=== PATIENT | female | born 1975 | race Caucasian/White ===

== ENCOUNTER 2018-03-25 08:15 | Day surgery (SDC) | payer BC ==
[~2018-03-25 08:15] MED LIST: Lactated Ringers 1,000 ML IV SCH; Lidocaine 2% 5 ML SDV ONE; Propofol 200 MG/20 ML SDV ONE; Sodium Chloride 0.9% 10 ML Syringe FLUSH PRN; Sodium Chloride 0.9% 2.5 ML Syringe FLUSH PRN; fentaNYL 100 MCG/2 ML SDV ONE
--- NOTE | 2018-03-25 08:51 | PCM.PREANE ---
Preanesthetic Assessment - Anesthesia/Transfusion/Family Hx Anesthesia History: Prior Anesthesia Without Reaction Family History of Anesthesia Reaction: No Transfusion History: No Prior Transfusion(s) Intubation History: Unknown - Review of Systems General: No Symptoms Pulmonary: No Symptoms Cardiovascular: No Symptoms Gastrointestinal: Other (h/o colon polyps 12 years ago) Neurological: No Symptoms Other: Reports: None - Physical Assessment O2 Sat by Pulse Oximetry: 97 Respiratory Rate: 16 Vital Signs: Last Vital Signs Temp 36 C 03/25/18 08:38 Pulse 80 03/25/18 08:38 Resp 16 03/25/18 08:38 BP 108/62 03/25/18 08:38 Pulse Ox 97 03/25/18 08:38 Height: 1.63 m Weight: 60.328 kg ASA Class: 2 Mental Status: Alert & Oriented x3 Airway Class: Mallampati = 2 Dentition: Reports: Normal Dentition Thyro-Mental Finger Breadths: 3 Mouth Opening Finger Breadths: 3 ROM/Head Extension: Full Lungs: Clear to Auscultation, Normal Respiratory Effort Cardiovascular: Regular Rate, Regular Rhythm - Allergies Allergies/Adverse Reactions: Allergies Allergy/AdvReac Type Severity Reaction Status Date / Time iodine Allergy Anaphylactic Verified 03/22/18 09:47 Shock - Blood Blood Available: No - Anesthesia Plan Pre-Op Medication Ordered: None - Acknowledgements Anesthesia Type Planned: MAC Pt an Appropriate Candidate for the Planned Anesthesia: Yes Alternatives and Risks of Anesthesia Discussed w Pt/Guardian: Yes Pt/Guardian Understands and Agrees with Anesthesia Plan: Yes PreAnesthesia Questionnaire HEENT History: Reports: Allergic Rhinitis Respiratory History: Reports: Asthma, Other (See Below) Other Respiratory History: "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" Gastrointestinal History: Reports: Colon Polyp Genitourinary History: Reports: Renal Calculus, UTI, Recurrent Neurological History: Reports: Migraines Psychiatric History: Reports: Anxiety Endocrine/Metabolic History: Reports: None - Past Surgical History Head Surgeries/Procedures: Reports: None GI Surgical History: Reports: Colonoscopy (12 years ago) Female Surgical History: Reports: Breast Implant, Tubal Ligation, Ureteral Stent, Other (See Below) Other Female Surgeries/Procedures: von ureteral reimplantations Male Surgical History: Reports: Renal Calculus - SUBSTANCE USE Smoking Status *Q: Former Smoker Tobacco Use Within Last Twelve Months: Other (See Below) Recreational Drug Use History: No - HOME MEDS Home Medications: Home Meds Albuterol [Ventolin HFA] 1 - 2 puff INH ASDIRECTED PRN 03/22/18 [History] Cetirizine [ZyrTEC] 10 mg PO DAILY 03/22/18 [History] Fluticasone Propionate [Flonase Allergy Relief] 1 spray CHERELLE BID 03/22/18 [ History] Ibuprofen 1 tab PO QID 03/22/18 [History] Loratadine [Claritin] 10 mg PO DAILY PRN 03/22/18 [History] Rizatriptan Benzoate [Rizatriptan] 1 tab PO ASDIRECTED PRN 03/22/18 [History] - CURRENT (IN HOUSE) MEDS Current Meds: Current Medications Lactated Ringer's (Ringers, Lactated) 1,000 mls @ 125 mls/hr IV ASDIRECTED EDUARDO Last Admin: 03/25/18 08:44 Dose: 125 mls/hr Sodium Chloride (Saline Flush) 10 ml FLUSH ASDIRECTED PRN PRN Reason: Keep Vein Open Sodium Chloride (Saline Flush) 2.5 ml FLUSH ASDIRECTED PRN PRN Reason: Keep Vein Open Sodium Chloride (Saline Flush) 10 ml FLUSH ASDIRECTED PRN PRN Reason: Keep Vein Open Sodium Chloride (Saline Flush) 2.5 ml FLUSH ASDIRECTED PRN PRN Reason: Keep Vein Open Discontinued Medications Fentanyl (Sublimaze) Confirm Administered Dose 100 mcg .ROUTE .STK-MED ONE Stop: 03/25/18 07:03 Lidocaine (Xylocaine-Mpf 2%) Confirm Administered Dose 5 ml .ROUTE .STK-MED ONE Stop: 03/25/18 07:02 Propofol (Diprivan 20 Ml) Confirm Administered Dose 400 mg .ROUTE .STK-MED ONE Stop: 03/25/18 07:03
[2018-03-25] MEDS ORDERED: Glycopyrrolate 0.2 MG/ML SDV ONE (09:14)
--- NOTE | 2018-03-25 09:27 | PCM.OPNOTE ---
- General Post-Op/Procedure Note Date of Surgery/Procedure: 03/25/18 Operative Procedure(s): Colonoscopy Findings: Normal colonoscopy Pre Op Diagnosis: Family history of colon cancer Post-Op Diagnosis: Normal colonoscopy Anesthesia Technique: MAC Primary Surgeon: Wendy Alicia Condition: Good
--- NOTE | 2018-03-25 09:43 | PCM.POSTAN ---
POST ANESTHESIA ASSESSMENT - MENTAL STATUS Mental Status: Alert, Oriented - VITAL SIGNS Pulse Rate: 60 SaO2: 98 Resp Rate: 12 Blood Pressure: 92/46 - RESPIRATORY Respiratory Status: Respiratory Rate WNL, Airway Patent, O2 Saturation Stable - CARDIOVASCULAR CV Status: Pulse Rate WNL, Blood Pressure Stable - GASTROINTESTINAL GI Status: No Symptoms - PAIN Pain Score: 0 - POST OP HYDRATION Hydration Status: Adequate & Stable
--- NOTE | 2018-03-25 10:04 | PCM48HPAN ---
Post Anesthesia Note - EVALUATION WITHIN 48HRS OF ANESTHETIC Vital Signs in Normal Range: Yes Patient Participated in Evaluation: Yes Respiratory Function Stable: Yes Airway Patent: Yes Cardiovascular Function Stable: Yes Hydration Status Stable: Yes Pain Control Satisfactory: Yes Nausea and Vomiting Control Satisfactory: Yes Mental Status Recovered: Yes Pulse Rate: 60 Resp Rate: 12 Blood Pressure: 92/46 - COMMENTS/OBSERVATIONS Free Text/Narrative:: no anesthesia problems
[2018-03-25 10:12] VITALS: BP 96/56
--- NOTE | 2018-03-25 12:58 | OR ---
SURGEON: RASHIDA CALDERON MD DATE OF PROCEDURE: 03/25/2018 PREOPERATIVE DIAGNOSIS: Screening colonoscopy. POSTOPERATIVE DIAGNOSIS: Screening colonoscopy. PROCEDURE PERFORMED: Screening colonoscopy. ANESTHESIA: MAC. INSTRUMENT USED: Olympus colonoscope. EXTENT OF EXAM: To the cecum. PREPARATION: Good. LIMITATIONS: None. INDICATION FOR EXAMINATION: The patient is a 42-year-old female, who presents for screening colonoscopy. She has multiple family members, who had colon cancer. Her mother was diagnosed with colon cancer at age of 35. The patient has had no changes in her bowel movements. We discussed the procedure, expected perioperative course, and risks including bleeding, infection, or damage to surrounding structures including perforation. The patient verbalized understanding and wishes to proceed. PROCEDURE IN DETAIL: The patient was brought to the endoscopy suite and placed in the left lateral decubitus position. A time-out was completed verifying the patient's name, age, date of , allergies, and procedure to be performed. Monitored anesthesia care was induced and continuous oxygen was provided via nasal cannula throughout the procedure. After adequate sedation was achieved, a digital rectal exam was performed. This exam was within normal limits. A well lubricated colonoscope was inserted in the rectum and advanced under direct visualization to the level of the cecum. The cecum was identified by both visual and anatomic landmarks. A photograph was taken of the cecal cap; however, I was unable to retroflex the scope within the cecum due to looping of the scope more proximally. The scope was then fully withdrawn while examining the color, texture, anatomy, and integrity of the mucosa from the cecum to the anal canal. The findings were consistent with normal colonic mucosa. The scope was then brought into the rectum and retroflexed to allow visualization of the anal canal opening. This appeared normal and a photograph was taken. The scope was then straightened out and fully withdrawn. The cecum to anus time was 9 minutes. The patient tolerated the procedure well and was taken to PACU in stable condition. ENDOSCOPIC DIAGNOSIS: Normal colonoscopy. RECOMMENDATIONS: Follow up in clinic in 5 years. MARILEE KINGSLEY /[id number]
== END 2018-03-25 10:07 | disposition home or self-care (01) ==
LOC: MW.SDS 08:15
PROVIDERS: ATTEND Surgery
DX: Z12.11 Encounter for screening for malignant neoplasm of colon (principal); Z86.010 Personal history of colon polyps; Z87.891 Personal history of nicotine dependence; Z79.899 Other long term (current) drug therapy; Z80.0 Family history of malignant neoplasm of digestive organs; Z88.8 Allergy status to other drugs, medicaments and biological substances
CPT/HCPCS: 45378; 81025; J2704; J3010; J3490; J7120

== ENCOUNTER 2020-04-02 23:24 | Emergency (ER) | payer SELFPAY ==
[2020-04-03] MEDS ORDERED: Prochlorperazine 10 MG/2 ML SDV IVPUSH ONE (00:27)
[2020-04-03] MEDS ORDERED: Ketorolac 15 MG/ML SDV IVPUSH ONE (00:29)
[2020-04-03] MEDS ORDERED: diphenhydrAMINE 50 MG/ML SDV IVPUSH ONE (00:29)
[2020-04-03] MEDS ORDERED: methylPREDNISolone Sodium Succinate 125 MG/2 ML SDV IVPUSH ONE (00:29)
[2020-04-03] MEDS ORDERED: Sodium Chloride 0.9% 1,000 ML IV ONE (00:32)
--- NOTE | 2020-04-03 00:38 | EDM.PDOC ---
ED [facility] GENERAL MEDICAL PROBLEM - General Chief Complaint: Headache Stated Complaint: migraine Time Seen by Provider: 04/02/20 23:30 - History of Present Illness INITIAL COMMENTS - FREE TEXT/NARRATIVE: HISTORY AND PHYSICAL: History of present illness: This 44-year-old female with a history of chronic migraines presents emergency department after using a triptan multiple times without relief. She rates her headache as 7 out of 10. She has photophobia. Is mostly on the right side and goes from the occipital area up to the parietal area and forehead. No neck stiffness or pain with range of motion. She states that she has these on a regular basis and has had difficulty getting into her headache specialist secondary to change in insurance. The patient reports that she is also had some mild nausea. No fevers. 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 No recent travel. She does use nicotine with a vape system. No drugs. Denies use of alcohol other than in social settings at times. Review of systems: A 10-point review of systems, other than pertinent positives and negatives as stated per HPI, is otherwise negative. Past medical history: As per history of present illness and as reviewed below otherwise noncontributory. Surgical history: As per history of present illness and as reviewed below otherwise noncontributory. Social history: No reported history of drug or alcohol abuse. Family history: As per history of present illness and as reviewed below otherwise noncontributory. Physical exam: VITAL SIGNS: Reviewed. GENERAL: Appears to be in acute pain. Otherwise nontoxic. She has a normal gait walking to the emergency department triage area HEAD: No signs of head trauma. EYES: Pupils are equal. Extraocular motions intact. EARS: Hearing grossly intact. MOUTH: Oropharynx is normal. NECK: No adenopathy, no JVD. CHEST: Chest with clear breath sounds bilaterally. No wheezes, rales, or rhonchi. CARDIAC: Regular rate and rhythm. Normal S1 and S2, without murmurs, gallops, or rubs. VASCULAR: Peripheral pulses normal and equal in all extremities. ABDOMEN: Soft, without detectable tenderness. No sign of distention. No rebo und or guarding, and no masses palpated. MUSCULOSKELETAL: Good range of motion of all major joints. Extremities without clubbing, cyanosis or edema. NEUROLOGIC EXAM: Alert and oriented x 3. No focal sensory or motor deficits. Speech normal. Follows commands. Cranial nerves II through XII are intact. Normal gait when walking next to her from the waiting area to the triage area. PSYCHIATRIC: Mood normal. SKIN: No rash or lesions. Initial Differential Diagnosis & Plan: Differential diagnosis includes meningitis, subarachnoid hemorrhage, trauma, mass lesion, carbon dioxide of exposure, cavernous sinus venous thrombosis, and pseudotumor cerebri. There is no neck stiffness or fever to suggest meningitis. There was no evidence of carbon monoxide exposure. There is not a history of hypercoagulability or cranial nerve deficits to suggest cavernous venous thrombosis. The vision is normal and the duration is not long enough to consider pseudotumor cerebri. There is no evidence of trauma to suggest epidural hematoma or subdural hematoma. The onset was gradual and it is not the worst headache ever making subarachnoid hemorrhage less likely. I suspect this is her normal migraine not responding to her rescue medications. No neurologic deficits. No high risk features for cavernous sinus thrombosis. No recent trauma. There is some mild increase in her pain when palpating the right posterior occipital outlet. This could be an occipital neuralgia. We will try Compazine, Benadryl, Toradol and Solu-Medrol intravenously along with some IV fluid given her clinical dehydration secondary to dry mucous membranes and see if this works. We did discuss an occipital block if the patient's pain does not improve. Definitive disposition and diagnosis as appropriate pending reevaluation and review of above. Headache Pain Score (Numeric/FACES): 7 - Related Data Allergies Allergy/AdvReac Type Severity Reaction Status Date / Time iodine Allergy Anaphylactic Verified 03/22/18 09:47 Shock Home Meds: Home Meds Albuterol [Ventolin HFA] 1 - 2 puff INH ASDIRECTED PRN 03/22/18 [History] Cetirizine [ZyrTEC] 10 mg PO DAILY 03/22/18 [History] Fluticasone Propionate [Flonase Allergy Relief] 1 spray CHERELLE BID 03/22/18 [History] Ibuprofen 1 tab PO QID 03/22/18 [History] Loratadine [Claritin] 10 mg PO DAILY PRN 03/22/18 [History] Rizatriptan Benzoate [Rizatriptan] 1 tab PO ASDIRECTED PRN 03/22/18 [History] Prochlorperazine Maleate [Compazine] 10 mg PO TID PRN #30 tablet 04/03/20 [Rx] Sulindac [Clinoril] 200 mg PO BIDMEALS #60 tab 04/03/20 [Rx] ZOLMitriptan [Zomig] 5 mg PO ONETIME 1 Days #21 tablet 04/03/20 [Rx] Past Medical History HEENT History: Reports: Allergic Rhinitis Respiratory History: Reports: Asthma, Other (See Below) Other Respiratory History: "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" Gastrointestinal History: Reports: Colon Polyp Genitourinary History: Reports: Renal Calculus, UTI, Recurrent Neurological History: Reports: Migraines Psychiatric History: Reports: Anxiety Endocrine/Metabolic History: Reports: None - Past Surgical History Female Surgical History: Reports: Breast Implant, Tubal Ligation, Ureteral Stent, Other (See Below) Other Female Surgeries/Procedures: von ureteral reimplantations Social & Family History - Family History Family Medical History: Noncontributory - Caffeine Use Caffeine Use: Reports: Coffee Caffeine Use Comment: 3 cups of coffee everyday ED ROS GENERAL - Review of Systems Review Of Systems: See Below (noted) - Physical Exam Exam: See Below (noted) Course - Vital Signs Last Recorded V/S: Last Vital Signs Temp 98.1 F 04/03/20 00:27 Pulse 86 04/03/20 00:27 Resp 16 04/03/20 00:27 BP 122/68 04/03/20 00:27 Pulse Ox 97 04/03/20 00:27 Headache resolved. Ready to go home. I will give her medications for at home for rescue. My diagnostic impression: 1. Headache; likely migraine 2. Mild dehydration - Orders/Labs/Meds Orders: Active Orders 24 hr Category Date Time Status Sodium Chloride 0.9% [Normal Saline] 1,000 ml Med 04/03/20 00:32 Active IV .Bolus Medication Orders Sodium Chloride (Normal Saline) 1,000 mls @ 1,000 mls/hr IV .Bolus ONE Stop: 04/03/20 01:31 Last Admin: 04/03/20 00:40 Dose: 1,000 mls/hr Documented by: [facility] Meds: Medications Generic Name Dose Route Start Last Admin Trade Name Freq PRN Reason Stop Dose Admin Sodium Chloride 1,000 mls @ 1,000 mls/hr 04/03/20 00:32 04/03/20 00:40 Normal Saline IV 04/03/20 01:31 1,000 mls/hr .Bolus ONE Administration Discontinued Medications Generic Name Dose Route Start Last Admin Trade Name Oliverio PRN Reason Stop Dose Admin Diphenhydramine HCl 25 mg 04/03/20 00:29 04/03/20 00:44 Benadryl IVPUSH 04/03/20 00:30 25 mg ONETIME ONE Administration Ketorolac Tromethamine 15 mg 04/03/20 00:29 04/03/20 00:42 Toradol IVPUSH 04/03/20 00:30 15 mg ONETIME ONE Administration Methylprednisolone Sodium Succinate 125 mg 04/03/20 00:29 04/03/20 00:43 Solu-Medrol IVPUSH 04/03/20 00:30 125 mg ONETIME ONE Administration Prochlorperazine Edisylate 10 mg 04/03/20 00:27 04/03/20 00:40 Compazine IVPUSH 04/03/20 00:28 10 mg ONETIME ONE Administration - Re-Assessments/Exams Free Text/Narrative Re-Assessment/Exam: 04/03/20 00:37 Procedure Note: Physician placed IV Due to difficult or critical IV access situation I have placed an IV for treatment and circulatory access. Location: 18-gauge angiocatheter left internal vein Complications: None Free Text/Narrative Re-Assessment/Exam: 04/03/20 01:19 The patient has clinical signs and symptoms of dehydration requiring IV hydration History (indicate if present with "X" ) X Inadequate Oral Intake _unable to take PO / persistent vomiting _needs to remain NPO due to possibility of a surgical condition _abnormal fluid losses Physical Examination (indicate if present with "X" ) _altered Mental Status _HR >100 or elevated HR X Dry mucous membranes _appears septic Testing (indicate if present with "X" ) _elevated BUN _elevated Cr _Na >150 _elevated urine specific gravity _hemoconcentration (elevated Hgb/Hct) _elevated lactate _elevated Glucose level Departure - Departure Time of Disposition: 01:20 Disposition: Home, Self-Care 01 Clinical Impression: Migraine - Discharge Information *PRESCRIPTION DRUG MONITORING PROGRAM REVIEWED*: Not Applicable *COPY OF PRESCRIPTION DRUG MONITORING REPORT IN PATIENT [place]: Not Applicable Instructions: Migraine Headache, [id number] Referrals: PCP,None [Primary Care Provider] - Forms: ED Department Discharge Additional Instructions: The following information is given to patients seen in the emergency department who are being discharged to home. This information is to outline your options for follow-up care. We provide all patients seen in our emergency department with a follow-up referral. The need for follow-up, as well as the timing and circumstances, are variable depending upon the specifics of your emergency department visit. If you don't have a primary care physician on staff, we will provide you with a referral. We always advise you to contact your personal physician following an emergency department visit to inform them of the circumstance of the visit and for follow-up with them and/or the need for any referrals to a consulting specialist. The emergency department will also refer you to a specialist when appropriate. This referral assures that you have the opportunity for follow-up care with a specialist. All of these measure are taken in an effort to provide you with optimal care, which includes your follow-up. Thank you for coming to the [facility] urgency department for your care today. It was Dr. Guillory's pleasure to take care of you. You responded well to standard migraine therapy in the emergency department. You received IV fluids, intravenous steroids to prevent rebound headache, intravenous Compazine (a phenothiazine derivative highly effective in treating migraine) and Benadryl. This resolved her headache. You do not have signs of meningitis or other underlying headache emergencies. Please return for worsening, uncontrolled pain or new symptoms. We are always happy to see you. Under all circumstances we always encourage you to contact your private physician who remains a resource for coordinating your care. When calling for follow-up care, please make the office aware that this follow-up is from your recent emergency room visit. If for any reason you are refused follow-up, please contact the [facility] Emergency Department at and asked to speak to the emergency department charge nurse. Sepsis Event Note (ED) - Evaluation Sepsis Screening Result: No Definite Risk - Focused Exam Vital Signs: Vital Signs Temp Pulse Resp BP Pulse Ox 04/03/20 00:27 98.1 F 86 16 122/68 97 - My Orders Last 24 Hours: My Active Orders 09/29/20 00:32 Sodium Chloride 0.9% [Normal Saline] 1,000 ml IV .Bolus - Assessment/Plan Last 24 Hours: My Active Orders 04/03/20 00:32 Sodium Chloride 0.9% [Normal Saline] 1,000 ml IV .Bolus
[2020-04-03 01:52] VITALS: BP 106/68; PULSE 64
== END 2020-04-03 01:30 | disposition home or self-care (01) ==
LOC: MW.ED 23:24
DX: E86.0 Dehydration (principal); J45.909 Unspecified asthma, uncomplicated; Z91.048 Other nonmedicinal substance allergy status; Z79.899 Other long term (current) drug therapy
CPT/HCPCS: 96361; 96374; 96375; 99283; J0780; J1200; J1885; J2930; J7030

== ENCOUNTER 2021-06-28 18:28 | Emergency (ER) | payer SELFPAY ==
[2021-06-28] MEDS ORDERED: Ketorolac 60 MG/2 ML SDV IM ONE (19:01)
[2021-06-28] MEDS ORDERED: Ibuprofen 800 MG Tab PO ONE (19:41)
--- NOTE | 2021-06-28 20:08 | CR ---
Indication: Fall Technique: Two views right forearm Three views right elbow Comparison: No comparison Findings: Normal alignment. No acute fractures seen. No effusion Dictated by Joanne Adams MD @ 06/28/2021 8:08:05 PM (Electronically Signed)
--- NOTE | 2021-06-28 20:11 | CR ---
Indication: Fall Technique: Three-views of the right hand Comparison: No comparison Findings: Normal alignment. No acute fractures or acute osseous abnormalities. Dictated by Joanne Adams MD @ 06/28/2021 8:09:45 PM (Electronically Signed)
--- NOTE | 2021-06-28 20:11 | CR ---
Indication: Fall Technique: Two views right forearm Three views right elbow Comparison: No comparison Findings: Normal alignment. No acute fractures seen. No effusion Dictated by Joanne Adams MD @ 06/28/2021 8:08:42 PM (Electronically Signed)
--- NOTE | 2021-06-28 20:17 | EDM.PDOC ---
ED HPI GENERAL MEDICAL PROBLEM - General Chief Complaint: Upper Extremity Injury/Pain Stated Complaint: WRIST PAIN Time Seen by Provider: 06/28/21 18:31 Source of Information: Reports: Patient History Limitations: Reports: No Limitations - History of Present Illness INITIAL COMMENTS - FREE TEXT/NARRATIVE: HISTORY AND PHYSICAL: History of present illness: Patient is a 46-year-old female who presents emergency room today with concern of right wrist/forearm injury that occurred a few hours prior to arrival to the emergency room. Patient states that she was walking her dog outside when the dog pulled and she slipped on the ice and landed forward and caught herself with her right arm. Patient states that she felt a popping sensation in her mid forearm and states that she did have a prior hairline fracture of this area and felt like this was the area that popped. Patient states that she came immediately to the emergency room. She denies any head injury or other associ ated injury. Patient denies fever, chills, chest pain, shortness of breath, or cough. Denies headache, neck stiff ness, change in vision, syncope, or near syncope. Denies nausea, vomiting, abdominal pain, diarrhea, constipation, or dysuria. Has not noted any blood in urine or stool. Patient has been eating and drinking appropriately. Review of systems: As per history of present illness and below otherwise all systems reviewed and negative. Past medical history: As per history of present illness and as reviewed below otherwise noncontributory. Surgical history: As per history of present illness and as reviewed below otherwise noncontributory. Social history: See social history for further information Family history: As per history of present illness and as reviewed below otherwise noncontributory. Physical exam: General: Patient is alert, oriented, and in no acute distress. Patient sitting comfortably on exam table. Vitals stable and reviewed by me. HEENT: Atraumatic, normocephalic, pupils equal and reactive bilaterally, negative for conjunctival pallor or scleral icterus, mucous membranes moist, throat clear, neck supple, nontender, trachea midline. No drooling or trismus noted. No meningeal signs. No hot potato voice noted. Lungs: Clear to auscultation, breath sounds equal bilaterally, chest nontender. Heart: S1S2, regular rate and rhythm without overt murmur Abdomen: Soft, nondistended, nontender. Negative for masses or hepatosplenomegaly. Negative for costovertebral tenderness. Pelvis: Stable nontender. Genitourinary: Deferred. Rectal: Deferred. Skin: Intact, warm, dry. No lesions or rashes noted. Extremities: No obvious deformity of the complete right upper extremity. Patient does have significant pain to palpation of the distal radius/mid forearm of the right upper extremity without obvious injury/hematoma, ecchymosis, or obvious deformity. Radial pulse is grossly intact of the right upper extremity with capillary refill less than 2 seconds. Patient does have limited range of motion of the right elbow and wrist due to pain but does have full range of motion of the right shoulder and digits of the right upper extremity. All compartments are soft of the right upper extremity. Intact sensation to light and deep touch of the complete right upper extremity. Otherwise, atraumatic, negative for cords or calf pain. Neurovascular unremarkable. Neuro: Awake, alert, oriented. Cranial nerves II through XII unremarkable. Cerebellum unremarkable. Motor and sensory unremarkable throughout. Exam nonfocal. Medical Decision Making: Given patient's history of hairline fracture of the right forearm with a "popping "sensation of this area, I will place a splint at this time and have patient follow-up with a primary care provider for reimaging in 10 to 14 days. Strict return precautions thoroughly discussed with patient. Discussed importance for follow-up with a primary care provider. Voices understanding and is agreeable to plan of care. Denies any further questions or concerns at this time. Diagnostics: Forearm, hand, elbow x-ray, right Therapeutics: Wrist/forearm splint, right placed by nursing staff, shoulder sling Prescription: None Impression: Right forearm injury Plan: 1. Rest, ice, elevate the affected extremity. You can apply ice 15 minutes on, 15 minutes off. Wear the splint until follow-up with your primary care provider as discussed. 2. Tylenol and/or Ibuprofen as directed for pain management or discomfort. 3. Follow up with the primary care provider as discussed. Return to the ED as needed and as discussed. Definitive disposition and diagnosis as appropriate pending reevaluation and review of above. 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" Gastrointestinal History: Reports: Colon Polyp Genitourinary History: Reports: Renal Calculus, UTI, Recurrent Neurological History: Reports: Migraines Psychiatric History: Reports: Anxiety Endocrine/Metabolic History: Reports: None - Past Surgical History Head Surgeries/Procedures: Reports: None GI Surgical History: Reports: Colonoscopy Female Surgical History: Reports: Breast Implant, Lithotripsy/ESWL, Tubal Ligation, Ureteral Stent, Other (See Below) Other Female Surgeries/Procedures: von ureteral reimplantations Social & Family History - Family History Family Medical History: No Pertinent Family History - Tobacco Use Tobacco Use Status *Q: Current Every Day Tobacco User Years of Tobacco use: 7 Packs/Tins Daily: 1 - Caffeine Use Caffeine Use: Reports: Coffee Caffeine Use Comment: 3 cups of coffee everyday - Recreational Drug Use Recreational Drug Use: No Review of Systems - Review of Systems Review Of Systems: Comprehensive ROS is negative, except as noted in HPI. ED EXAM, GENERAL - Physical Exam Exam: See Below (see dictation) Course - Vital Signs Last Recorded V/S: Last Vital Signs Temp 97.7 F 06/28/21 18:44 Pulse 91 06/28/21 18:44 Resp 16 06/28/21 18:44 BP 118/76 06/28/21 18:44 Pulse Ox 100 06/28/21 18:44 - Orders/Labs/Meds Orders: Active Orders 24 hr Category Date Time Status Communication Order [RC] STAT Care 06/28/21 20:17 Active DME for Discharge [COMM] Stat Oth 06/28/21 20:17 Ordered Meds: Medications Discontinued Medications Generic Name Dose Route Start Last Admin Trade Name Freq PRN Reason Stop Dose Admin Ibuprofen 800 mg 06/28/21 19:41 06/28/21 19:45 Ibuprofen 800 Mg Tab PO 06/28/21 19:42 800 mg ONETIME ONE Administration Ketorolac Tromethamine 60 mg 06/28/21 19:01 06/28/21 19:17 Ketorolac 60 Mg/2 Ml Sdv IM 06/28/21 19:02 Not Given ONETIME ONE Departure - Departure Time of Disposition: 20:16 Disposition: Home, Self-Care 01 Clinical Impression: Forearm injury Qualifiers: Encounter type: initial encounter Laterality: right Qualified Code(s): S59.911A - Unspecified injury of right forearm, initial encounter - Discharge Information Instructions: Cast or Splint Care, Adult, [id number], How to use a Sling, [id number] Referrals: PCP,None [Primary Care Provider] - Forms: ED Department Discharge Additional Instructions: The following information is given to patients seen in the emergency department who are being discharged to home. This information is to outline your options for follow-up care. We provide all patients seen in our emergency department with a follow-up referral. The need for follow-up, as well as the timing and circumstances, are variable depending upon the specifics of your emergency department visit. If you don't have a primary care physician on staff, we will provide you with a referral. We always advise you to contact your personal physician following an emergency department visit to inform them of the circumstance of the visit and for follow-up with them and/or the need for any referrals to a consulting specialist. The emergency department will also refer you to a specialist when appropriate. This referral assures that you have the opportunity for follow-up care with a specialist. All of these measure are taken in an effort to provide you with optimal care, which includes your follow-up. Under all circumstances we always encourage you to contact your private physician who remains a resource for coordinating your care. When calling for follow-up care, please make the office aware that this follow-up is from your recent emergency room visit. If for any reason you are refused follow-up, please contact the [facility] Emergency Department at and asked to speak to the emergency department charge nurse. [facility] [address] [place] [id number] [place] [address] 1. Rest, ice, elevate the affected extremity. You can apply ice 15 minutes on, 15 minutes off. Wear the splint until follow-up with your primary care provider as discussed. 2. Tylenol and/or Ibuprofen as directed for pain management or discomfort. 3. Follow up with the primary care provider as discussed. Return to the ED as needed and as discussed. Sepsis Event Note (ED) - Evaluation Sepsis Screening Result: No Definite Risk - Focused Exam Vital Signs: Vital Signs Temp Pulse Resp BP Pulse Ox 06/28/21 18:44 97.7 F 91 16 118/76 100 - My Orders Last 24 Hours: My Active Orders 06/28/21 20:17 Communication Order [RC] STAT DME for Discharge [COMM] Stat - Assessment/Plan Last 24 Hours: My Active Orders 06/28/21 20:17 Communication Order [RC] STAT DME for Discharge [COMM] Stat
[2021-06-28 20:46] VITALS: BP 116/78; PULSE 87
== END 2021-06-28 20:39 | disposition home or self-care (01) ==
LOC: MW.ED 18:28
DX: S59.911A Unspecified injury of right forearm, initial encounter (principal); Z72.0 Tobacco use; Z91.041 Radiographic dye allergy status; W00.0XXA Fall on same level due to ice and snow, initial encounter
CPT/HCPCS: 73080; 73090; 73130; 99283; A9270

== ENCOUNTER 2022-01-23 10:08 | Day surgery (SDC) | payer OTHER ==
[~2022-01-23 10:08] MED LIST changes: -Lidocaine 2% 5 ML SDV ONE; +Sodium Chloride 0.9% 20 ML SDV IV PRN
[2022-01-23 12:19] VITALS: BP 104/62; PULSE 78
== END 2022-01-23 12:21 | disposition home or self-care (01) ==
LOC: MW.SDS 10:08
PROVIDERS: ATTEND Surgery
DX: C18.2 Malignant neoplasm of ascending colon (principal); K63.5 Polyp of colon; J45.909 Unspecified asthma, uncomplicated; G43.709 Chronic migraine without aura, not intractable, without status migrainosus; G47.00 Insomnia, unspecified; Z88.8 Allergy status to other drugs, medicaments and biological substances; Z79.899 Other long term (current) drug therapy; Z98.890 Other specified postprocedural states; Z80.0 Family history of malignant neoplasm of digestive organs; Z87.891 Personal history of nicotine dependence
CPT/HCPCS: 45380; 45381; 81025; J2704; J3010; J7120; 00811